=== PATIENT | male | born 1985 ===

== ENCOUNTER → 2018-12-28 | Outpatient (CLI) | payer OTHER ==
--- NOTE | 2018-12-29 07:55 | REP ---
REASON: Pain after trauma. FINDINGS: No acute fracture or destructive osseous lesion. Electronically Signed by Kwan Taylor DO 12/29/2018 09:24 A
== END ==
LOC: M LRY 15:53
PROVIDERS: ATTEND Physician Assistant
DX: S67.32XA Crushing injury of left wrist, initial encounter (principal); W18.30XA Fall on same level, unspecified, initial encounter; Y92.009 Unspecified place in unspecified non-institutional (private) residence as the place of occurrence of the external cause